=== PATIENT | male | born 1965 | race Caucasian/White ===

== ENCOUNTER 2022-08-01 09:34 | Emergency (ER) | payer BC ==
[2022-08-01] MEDS ORDERED: Sodium Chloride 0.9% 10 ML Syringe FLUSH PRN (09:42)
[2022-08-01] MEDS: Ketorolac 60 MG/2 ML SDV IVPUSH ONE (09:50)
[2022-08-01] MEDS: Sodium Chloride 0.9% 1,000 ML IV ONE ×2 (10:06→11:11)
[2022-08-01] MEDS: Ondansetron 4 MG Tab.DIS PO ONE (11:10)
[2022-08-01] MEDS: Ciprofloxacin 500 MG Tab PO ONE (11:20)
== END 2022-08-01 12:12 | disposition home or self-care (01) ==
LOC: LB.ED 09:34
DX: N39.0 Urinary tract infection, site not specified (principal); N41.9 Inflammatory disease of prostate, unspecified; N40.1 Benign prostatic hyperplasia with lower urinary tract symptoms; N39.43 Post-void dribbling; Z88.0 Allergy status to penicillin; Z88.5 Allergy status to narcotic agent; Z88.6 Allergy status to analgesic agent; Z79.899 Other long term (current) drug therapy
CPT/HCPCS: 36415; 74176; 80048; 81001; 85027; 87086; 96361; 96374; 99283; 99284; A9270; J1885; J7030; Q0162